=== PATIENT | female | born 1990 | race Caucasian/White ===

== ENCOUNTER 2021-01-02 11:13 | Emergency (ER) | payer OTHER ==
[~2021-01-02 11:13] MED LIST: FLEXERIL10 MG PO; VOLTAREN **OUT75 MG PO; ZOLOFT50 MG PO
[2021-01-02 13:48] LABS: BASOPHIL 0.7 % (0-2); EOSINOPHIL 1.6 % (0-5); HCT 40.7 % (37.0-47.0); HGB 13.3 g/dl (12.5-16.0); LYMPHOCYTE 27.3 % (15-48); MCH 27.4 pg (25.0-31.0); MCHC 32.7 g/dL (32.0-36.0); MCV 83.9 fL (78.0-100.0); MONOCYTE 9.5 % (0-12); MPV 12.2 fL (6.0-9.5); NEUTROPHIL 60.7 % (41-80); NRBC 0; RBC 4.85 M/uL (4.20-5.40); RDW 12.6 % (11.5-14.0); WBC 4.3 K/uL (4.0-10.5)
[2021-01-02 13:55] LABS: BILIRUBIN - TOTAL 0.4 mg/dL (0.2-1.0); BUN/CREAT RATIO (CALC) 12.4 RATIO; CREATININE 1.05 mg/dL (0.51-0.95); POTASSIUM 4.2 mmol/L (3.5-5.1)
[2021-01-02 14:17] LABS: PLT 21 K/uL (150-400)
== END 2021-01-02 16:18 | disposition home or self-care (01) ==
LOC: FER 11:13
PROVIDERS: Internal Medicine
DX: U07.1 COVID-19 (principal); D69.6 Thrombocytopenia, unspecified; R91.1 Solitary pulmonary nodule; I10 Essential (primary) hypertension; F17.210 Nicotine dependence, cigarettes, uncomplicated
CPT/HCPCS: 36415; 71045; 80053; 85025; J1100; J7120; U0002

== ENCOUNTER 2021-06-10 16:58 | Emergency (ER) | payer OTHER ==
[2021-06-10 18:56] LABS: BILIRUBIN NEGATIVE (NEGATIVE); BLOOD NEGATIVE Ery/uL (NEGATIVE); CLARITY CLEAR (CLEAR); COLOR YELLOW (YELLOW); GLUCOSE (U) NORMAL (NORMAL); LEUKOCYTES 1+ Leu/uL (NEGATIVE); NITRITE POSITIVE (NEGATIVE); PROTEIN NEGATIVE (NEGATIVE); SPECIFIC GRAVITY >=1.030 (1.001-1.030); UROBILINOGEN 0.2 mg/dL (0.2-1.0)
[2021-06-10 19:00] LABS: BASOPHIL 0.2 % (0-2); EOSINOPHIL 0.6 % (0-5); HGB 13.1 g/dl (12.5-16.0); LYMPHOCYTE 29.8 % (15-48); MCH 28.1 pg (25.0-31.0); MCHC 33.6 g/dL (32.0-36.0); MCV 83.5 fL (78.0-100.0); MONOCYTE 5.9 % (0-12); MPV 12.7 fL (6.0-9.5); NEUTROPHIL 63.3 % (41-80); NRBC 0; RBC 4.67 M/uL (4.20-5.40); WBC 4.7 K/uL (4.0-10.5)
[2021-06-10 19:09] LABS: PLT 37 K/uL (150-400)
[2021-06-10 19:13] LABS: INR 1.09 (0.9-1.2); PROTHROMBIN TIME 13.5 SECONDS (11.8-13.4)
[2021-06-10 19:18] LABS: BILIRUBIN - TOTAL 0.2 mg/dL (0.2-1.0); BUN/CREAT RATIO (CALC) 12.5 RATIO; CREATININE 1.2 mg/dL (0.51-0.95); GLOBULIN (CALCULATION) 4.1 g/dL; POTASSIUM 4.4 mmol/L (3.5-5.1); TOTAL PROTEIN 8.1 g/dL (6.4-8.2)
[2021-06-10 19:19] LABS: BACTERIA 4+; URINARY WBC 20-50
[2021-06-10 20:24] LABS: INFLUENZA A NAA NEGATIVE (NEGATIVE)
[2021-06-10] MEDS ORDERED: ONDANSETRON ODT4 MG PO (20:27)
[2021-06-10 20:31] LABS: CORONAVIRUS 2019 SARS-COV-2 NEGATIVE (NEGATIVE)
[2021-06-10] MEDS ORDERED: MACROBID100 MG PO (20:49)
== END 2021-06-10 21:15 | disposition home or self-care (01) ==
LOC: FER 16:58
PROVIDERS: Emergency Medicine; Physician Assistant
DX: R55 Syncope and collapse (principal); I10 Essential (primary) hypertension; F17.210 Nicotine dependence, cigarettes, uncomplicated; Z20.822 Contact with and (suspected) exposure to COVID-19; Z79.899 Other long term (current) drug therapy
CPT/HCPCS: 36415; 70450; 80053; 81001; 85025; 85610; 85730; J7030; U0002

== ENCOUNTER 2021-08-18 12:26 | Emergency (ER) | payer OTHER ==
[~2021-08-18 12:26] MED LIST changes: +MACROBID100 MG PO; +ONDANSETRON ODT4 MG PO
[2021-08-18 13:02] LABS: BASOPHIL 0.5 % (0-2); EOSINOPHIL 0.8 % (0-5); HCT 38.3 % (37.0-47.0); HGB 12.4 g/dl (12.5-16.0); LYMPHOCYTE 28.5 % (15-48); MCH 27.6 pg (25.0-31.0); MCHC 32.4 g/dL (32.0-36.0); MCV 85.3 fL (78.0-100.0); MPV 11.7 fL (6.0-9.5); NEUTROPHIL 60.9 % (41-80); NRBC 0; RBC 4.49 M/uL (4.20-5.40); RDW 14.5 % (11.5-14.0); WBC 3.9 K/uL (4.0-10.5)
[2021-08-18 13:05] LABS: INR 1.06 (0.9-1.2); PROTHROMBIN TIME 13.2 SECONDS (11.8-13.4)
[2021-08-18 13:18] LABS: PLT 45 K/uL (150-400)
[2021-08-18 13:20] LABS: BILIRUBIN NEGATIVE (NEGATIVE); BLOOD NEGATIVE Ery/uL (NEGATIVE); CLARITY CLEAR (CLEAR); COLOR YELLOW (YELLOW); GLUCOSE (U) NORMAL (NORMAL); LEUKOCYTES NEGATIVE Leu/uL (NEGATIVE); NITRITE POSITIVE (NEGATIVE); PROTEIN NEGATIVE (NEGATIVE); SPECIFIC GRAVITY >=1.030 (1.001-1.030); UROBILINOGEN 0.2 mg/dL (0.2-1.0); pH 5.5 (5.0-9.0)
[2021-08-18 13:20] LABS: LACTIC ACID 1.9 mmol/L (0.4-1.9)
[2021-08-18 13:26] LABS: ALBUMIN 3.7 g/dL (3.4-5.0); BILIRUBIN - TOTAL 0.3 mg/dL (0.2-1.0); BUN/CREAT RATIO (CALC) 16.7 RATIO; CREATININE 1.14 mg/dL (0.51-0.95); GLOBULIN (CALCULATION) 4.8 g/dL; POTASSIUM 3.9 mmol/L (3.5-5.1); TOTAL PROTEIN 8.5 g/dL (6.4-8.2)
[2021-08-18 13:27] LABS: BACTERIA 3+
[2021-08-18] MEDS ORDERED: MACROBID100 MG PO ×2 (14:58→15:03)
== END 2021-08-18 15:00 | disposition home or self-care (01) ==
LOC: FER 12:26
PROVIDERS: Emergency Medicine
DX: N39.0 Urinary tract infection, site not specified (principal); I10 Essential (primary) hypertension; F17.200 Nicotine dependence, unspecified, uncomplicated
CPT/HCPCS: 36415; 71045; 80053; 81001; 83605; 84145; 85025; 85610; 87040; 87076; 87088; 87186; 99284; J2543; J7030

== ENCOUNTER 2021-10-22 14:16 | Emergency (ER) | payer OTHER ==
[2021-10-22 15:00] LABS: BASOPHIL 0.5 % (0-2); EOSINOPHIL 1.1 % (0-5); HCT 43.6 % (37.0-47.0); HGB 14.4 g/dl (12.5-16.0); LYMPHOCYTE 27.7 % (15-48); MCH 28.1 pg (25.0-31.0); MONOCYTE 9.2 % (0-12); NEUTROPHIL 61.1 % (41-80); NRBC 0; PLT 90 K/uL (150-400); RBC 5.13 M/uL (4.20-5.40); RDW 12.9 % (11.5-14.0); WBC 7.3 K/uL (4.0-10.5)
[2021-10-22 15:18] LABS: ALBUMIN 4.5 g/dL (3.4-5.0); BILIRUBIN - TOTAL 0.4 mg/dL (0.2-1.0); BUN/CREAT RATIO (CALC) 8.8 RATIO; CREATININE 1.81 mg/dL (0.51-0.95); GLOBULIN (CALCULATION) 3.9 g/dL; POTASSIUM 4.1 mmol/L (3.5-5.1); TOTAL PROTEIN 8.4 g/dL (6.4-8.2)
[2021-10-22 17:13] LABS: BILIRUBIN NEGATIVE (NEGATIVE); BLOOD 3+ Ery/uL (NEGATIVE); CLARITY CLEAR (CLEAR); COLOR YELLOW (YELLOW); GLUCOSE (U) NORMAL (NORMAL); LEUKOCYTES TRACE Leu/uL (NEGATIVE); NITRITE NEGATIVE (NEGATIVE); PROTEIN TRACE (LOW) mg/dL (NEGATIVE); SPECIFIC GRAVITY 1.025 (1.001-1.030); UROBILINOGEN 0.2 mg/dL (0.2-1.0)
[2021-10-22 17:34] LABS: BACTERIA 1+
== END 2021-10-22 17:54 | disposition home or self-care (01) ==
LOC: FER 14:16
PROVIDERS: Emergency Medicine; Nurse Practitioner Family
DX: R55 Syncope and collapse (principal); T67.5XXA Heat exhaustion, unspecified, initial encounter; N17.9 Acute kidney failure, unspecified; I10 Essential (primary) hypertension; F17.210 Nicotine dependence, cigarettes, uncomplicated; Z28.310 Unvaccinated for COVID-19; X32.XXXA Exposure to sunlight, initial encounter; Y93.89 Activity, other specified
CPT/HCPCS: 36415; 70450; 71046; 80053; 81001; 85025; J7030

== ENCOUNTER 2021-12-24 19:36 | Emergency (ER) | payer OTHER ==
[2021-12-24 20:25] LABS: BASOPHIL 0.4 % (0-2); EOSINOPHIL 0.9 % (0-5); HCT 30.6 % (37.0-47.0); HGB 10.2 g/dl (12.5-16.0); LYMPHOCYTE 16.2 % (15-48); MCH 28.1 pg (25.0-31.0); MCHC 33.3 g/dL (32.0-36.0); MCV 84.3 fL (78.0-100.0); MONOCYTE 7.2 % (0-12); MPV 12.8 fL (6.0-9.5); NEUTROPHIL 74.9 % (41-80); NRBC 0; RBC 3.63 M/uL (4.20-5.40); RDW 13.9 % (11.5-14.0); WBC 6.8 K/uL (4.0-10.5)
[2021-12-24 20:31] LABS: ALBUMIN 3.7 g/dL (3.4-5.0); BILIRUBIN - TOTAL 0.3 mg/dL (0.2-1.0); BUN/CREAT RATIO (CALC) 10.7 RATIO; CREATININE 1.5 mg/dL (0.51-0.95); GLOBULIN (CALCULATION) 3.3 g/dL; POTASSIUM 3.4 mmol/L (3.5-5.1)
[2021-12-24 20:38] LABS: PLT 42 K/uL (150-400)
[2021-12-24 20:52] LABS: CORONAVIRUS 2019 SARS-COV-2 NEGATIVE (NEGATIVE); INFLUENZA A NAA NEGATIVE (NEGATIVE)
[2021-12-24] MEDS ORDERED: NORCO 5-325 TA1 EACH PO (22:54)
== END 2021-12-24 23:17 | disposition home or self-care (01) ==
LOC: FER 19:36
PROVIDERS: Internal Medicine
DX: M32.9 Systemic lupus erythematosus, unspecified (principal); I10 Essential (primary) hypertension; F17.210 Nicotine dependence, cigarettes, uncomplicated; Z20.822 Contact with and (suspected) exposure to COVID-19; Z28.310 Unvaccinated for COVID-19; Z79.899 Other long term (current) drug therapy
CPT/HCPCS: 36415; 80053; 85025; J1170; J7030; U0002